=== PATIENT | female | born 2000 | race Caucasian/White ===

== ENCOUNTER 2025-06-09 19:33 | Emergency (ER) | payer BC, SELFPAY ==
[2025-06-09 19:36] VITALS: BP 124/87
[2025-06-09 20:08] VITALS: BMI 26.5
--- NOTE | 2025-06-09 20:28 | ED.GENMED ---
History of Present Illness
General
Chief Complaint: Skin Surface Trauma
Source: patient
Time Seen by Provider: 06/09/25 20:09
History of Present Illness
History of Present Illness:
24-year-old female with past medical history of von Willebrand's disease presenting to the emergency department for evaluation after she was accidentally stuck with a needle at her tattoo parlor yesterday stating she was stuck on her left index
finger, unsure as to if the source patient has any communicable disease although she does note it was marked off that the patient did not on their paperwork. Patient came to the ER for postexposure prophylaxis. Patient has no other concerns at
this time.
Past History
Past History
ED Past Medical History: Other (Von Willebrand's disease)
ED Past Surgical History: None
Social History
Tobacco: Non-smoker
Alcohol: Occasional
Drug: None
Personal: Single
Living: with family
Employment: Employed
Review of Systems
Review of Systems
All Other Systems: ROS reviewed and negative except as documented in HPI and ROS
Phy Exam
Physical Exam
Physical Exam:
GENERAL: Alert , in no apparent distress
EYE: conjunctiva clear
Head: Normocephalic atraumatic
NECK: Supple,
ENT: mmm.
LUNGS: no acute respiratory distress
NEUROLOGICAL: Alert and oriented
SKIN: Warm and dry, small puncture wound to the left index finger palmar surface of the distal phalanx
MUSCULOSKELETAL: well perfused.
PSYCH: Normal and appropriate interaction.
Scores
Heart Failure Risk
Heart Failure Risk Score: Not Applicable
Heart Score for Chest Pain Patients
STEMI patient?: Not applicable
Withdrawal Assessment of Alcohol
Withdrawal Assessment Completed?: Not applicable
Course
Orders/Labs/Results
Orders:
Orders
06/09/25 20:24
Emtricitabine/Tenofovir [Truvada Tablet] 1 tablet PO NOW STA
Raltegravir Potassium [Isentress] 400 mg PO NOW STA
06/09/25 20:25
Pt has had a significant HIV exposure? Routine
HIV Exposure is significant?: Yes
Test Result ONCE
06/09/25 20:34
Complete Blood Count/With Diff Urgent
Comprehensive Metabolic Panel Urgent
HCG, Serum Qualitative Screen Urgent
HIV Combo Urgent
Hepatitis B Surface Antibody Urgent
Hepatitis B Surface Antigen Urgent
Hepatitis C Antibody Urgent
06/09/25 21:07
Raltegravir Potassium [Isentress] 400 mg .ROUTE .STK-MED ONE
Abnormal Lab Results
06/09/25
20:34
Hct 36.9 L %
(37.0-47.0)
Absolute Monos (auto) 0.7 H 10^3/uL
(0.1-0.6)
Monocytes % 9.5 H %
(1.7-9.3)
Chloride 109 H mmol/L
(98-107)
Carbon Dioxide 21 L mmol/L
(22-30)
06/09/25 20:34
06/09/25 20:34
Vital Signs
Initial and Last Documented VS:
Initial Vital Signs
Temp Pulse Resp BP Pulse Ox
98.8 F 103 16 124/87 97
06/09/25 19:36 06/09/25 19:36 06/09/25 19:36 06/09/25 19:36 06/09/25 19:36
Last Documented Vital Signs
Temp Pulse Resp BP Pulse Ox
98.8 F 103 16 124/87 97
06/09/25 19:36 06/09/25 19:36 06/09/25 19:36 06/09/25 19:36 06/09/25 20:32
MDM/Problems Addressed
MDM/Problems Addressed:
I extensive conversation about risk versus benefit of postexposure prophylaxis and at this time patient would like to undergo treatment. Will order labs including hepatitis and HIV. Will order the first dose of medications to be given here and
send prescription for these meds to be sent to pharmacy. Patient will need follow-up with primary care provider and we did discuss likely need for follow-up with infectious disease as patient will need further lab work over the next year to ensure
no seroconversion to any of the communicable diseases that we would be treating for with the postexposure prophylaxis.
*Pulse Oximetry
SaO2: 97
Oxygen Mode of Delivery: Room air
Patient hypoxic: no
*Critical Care Note
Total Time (30-74mins, 75-104mins- exclusive of procedures): Not Applicable
ED Attending Note
-
Portions of this chart may have been created with voice recognition software.� Occasional wrong word or��sound alike� substitutions may have occurred due to the inherent limitations of voice recognition software.
Discharge Plan
Departure
Patient Disposition: Home (Routine Discharge)
Date of Disposition: 06/09/25
Time of Disposition: 20:45
Patient with high blood pressure during this ER visit?: No
Discharge Problem:
Accidental hypodermic needlestick injury
Instructions: Exposure to HIV or hepatitis through blood or body fluids
Prescriptions:
New
emtricitabine-tenofovir (TDF) [Truvada] 200-300 mg tablet
1 tab PO DAILY Qty: 27 0RF
raltegravir 400 mg tablet
400 mg PO BID 27 Days Qty: 54 0RF
Referrals:
Maryana Honeycutt NP [Family Provider, Family Practice]
Mei Vásquez MD [Active, Infectious Diseases]
Interventions
Interventions:
*Risk Screen - Suicide Last Done: 06/09/25 19:36
*General Assessment Last Done: 06/09/25 19:36
*Neglect/Abuse Screening Last Done: 06/09/25 19:36
*ED- Fall Risk Assessment Last Done: 06/09/25 19:36
*ED COVID-19 Vaccine History Last Done: 06/09/25 19:36
*Nursing Disposition Last Done: 06/09/25 21:11
ED-Skin Assessment Last Done: 06/09/25 20:08
Discharge Date and Time
Discharge Date/Time: 06/09/25 21:12
Print Language: DANISH
[2025-06-09 20:46] LABS: Hematocrit 36.9 % (37.0-47.0); Hemoglobin 12.6 g/dL (12.0-16.0); Mean Corp Hgb Conc. 34.1 g/dL (33.0-37.0); Mean Corpuscular Volume 85.2 fL (81.0-99.0); Nucleated Red Blood Cells % 0 %; Platelet Count 258 10^3/uL (130-400); Red Cell Dist. Width 12.2 % (11.5-14.5)
[2025-06-09 20:55] LABS: HCG, Serum Qualitative Screen Negative
[2025-06-09 21:03] LABS: ALT (SGPT) 26 U/L (0-35); AST (SGOT) 18 U/L (14-36); Albumin 4.5 g/dl (3.5-5.0); Alkaline Phosphatase 45 U/L (38-126); Blood Urea Nitrogen 13 mg/dl (7-17); Calcium 9.4 mg/dl (8.4-10.2); Carbon Dioxide 21 mmol/L (22-30); Chloride 109 mmol/L (98-107); Estimated Creatinine Clearance 98 ml/min; Glucose 92 mg/dl (70-99); Potassium 4.2 mmol/L (3.5-5.1); Sodium 136 mmol/L (135-145); Total Protein 7.1 g/dl (6.3-8.2); eGFR > 60.00
[2025-06-09] MEDS: TRUVADA TABLET 1 TABLET PO (21:04)
[2025-06-09] MEDS: ISENTRESS 400 MG PO (21:07)
[2025-06-09 21:30] LABS: Hepatitis B Surface Antigen Negative (Negative)
[2025-06-09 21:46] LABS: Hepatitis C Antibody Negative (Negative)
== END 2025-06-09 21:12 | disposition home or self-care (01) ==
LOC: EMR 19:33
PROVIDERS: Physician Assistant Medical; EMERGENCY PHYSICIAN Emergency Medicine; FAMILY PHYSICIAN Nurse Practitioner Family
DX: Z77.21 Contact with and (suspected) exposure to potentially hazardous body fluids (principal); W46.0XXA Contact with hypodermic needle, initial encounter; Y99.0 Civilian activity done for income or pay; D68.00 Von Willebrand disease, unspecified
CPT/HCPCS: 99283; 80053; 84703; 85025; 86706; 86803; 87340; 87389